=== PATIENT | female | born 1975 | race Caucasian/White ===

== ENCOUNTER 2017-09-15 20:00 | Emergency (ER) | payer MEDICAID ==
[~2017-09-15] VITALS: Ht 170.2 cm; Wt 61.2 kg
[2017-09-15 20:03] VITALS: BP_SYST 133
[2017-09-15 20:20] VITALS: BP_SYST 133
== END 2017-09-15 20:20 ==
LOC: MERGE 20:00 → SED 20:00
DX: Z02.89 Encounter for other administrative examinations (principal); R06.2 Wheezing; Z88.0 Allergy status to penicillin
CPT/HCPCS: 99283

== ENCOUNTER 2017-12-04 02:17 | Emergency (ER) | payer MEDICAID ==
[~2017-12-04] VITALS: Ht 157.5 cm; Wt 57.2 kg
[2017-12-04 02:20] VITALS: BP_SYST 151
--- NOTE | 2017-12-04 02:25 | NUR ---
Placed in room H1. Brought in by [facility] for medical clearance.
--- NOTE | 2017-12-04 02:29 | NUR ---
Pt AAOx4 BIB law enforcement for OK to book. Skin pink dry and warm, breathing even and unlabored. No other injuries/complaints per pt/noted. Will continue to monitor.
--- NOTE | 2017-12-04 02:30 | NUR ---
ER Dr. Ngo at bedside examining patient.
--- NOTE | 2017-12-04 02:37 | NUR ---
Patient given written and verbal discharge instructions and verbalizes understanding. Pt left in custody escorted by Officer Rosario with stable gait. ER MD Ngo discussed with patient the results and treatment provided. Patient in stable condition. No Rx given. Patient educated on pain management and to follow up with PMD. Pain Scale 0. Opportunity for questions provided and answered. Medication side effect fact sheet provided.
[2017-12-04 02:43] VITALS: BP_SYST 145
== END 2017-12-04 02:43 ==
LOC: SED 02:17
DX: Z02.89 Encounter for other administrative examinations (principal); G40.909 Epilepsy, unspecified, not intractable, without status epilepticus; F41.9 Anxiety disorder, unspecified; F17.200 Nicotine dependence, unspecified, uncomplicated; Z86.19 Personal history of other infectious and parasitic diseases; Z88.0 Allergy status to penicillin
CPT/HCPCS: 99283

== ENCOUNTER 2018-03-08 22:23 | Emergency (ER) | payer MEDICAID ==
[~2018-03-08] VITALS: Ht 170.2 cm; Wt 61.2 kg
[2018-03-08 23:08] VITALS: BP_SYST 141
[2018-03-09] MEDS ORDERED: IBUPROFEN 800 MG TABLET PO ONE (00:30)
[2018-03-09 00:52] VITALS: BP_SYST 141
== END 2018-03-09 00:52 | disposition home or self-care (01) ==
LOC: SED 22:23
DX: Z76.0 Encounter for issue of repeat prescription (principal)
CPT/HCPCS: 99283

== ENCOUNTER 2018-05-03 18:45 | Emergency (ER) | payer MEDICAID ==
[~2018-05-03] VITALS: Ht 170.2 cm; Wt 61.2 kg
--- NOTE | 2018-05-03 18:45 | NUR ---
Patient to ER bed h1 for evaluation. Side rails up.
[2018-05-03 18:52] VITALS: BP_SYST 105
--- NOTE | 2018-05-03 18:52 | NUR ---
ER Dr. Turpin at bedside examining patient.
--- NOTE | 2018-05-03 18:56 | NUR ---
Pt AAOx4 presents to ED escorted by DOTTIE Mayen for OK TO BOOK. Pt c/o headache and pain to R nare. Skin pink dry and warm, breathing even and unlabored, speaking in full sentences. No other injuries/complaints per pt/noted. Will continue to monitor.
--- NOTE | 2018-05-03 19:18 | NUR ---
Patient given written and verbal discharge instructions and verbalizes understanding. ER MD Turpin discussed with patient the results and treatment provided. Patient in stable condition. ID arm band removed. Rx of Acyclovir 800 mg given. Patient educated on pain management and to follow up with PMD. Pain Scale 0. Opportunity for questions provided and answered. Medication side effect fact sheet provided.
[2018-05-03 19:20] VITALS: BP_SYST 111
== END 2018-05-03 19:18 ==
LOC: SED 18:45
DX: B02.9 Zoster without complications (principal); Z88.0 Allergy status to penicillin; Z90.49 Acquired absence of other specified parts of digestive tract; Z86.19 Personal history of other infectious and parasitic diseases
CPT/HCPCS: 99283

== ENCOUNTER 2018-08-01 16:51 | Emergency (ER) | payer MEDICAID ==
[~2018-08-01] VITALS: Ht 170.2 cm; Wt 59.0 kg
[2018-08-01 16:51] VITALS: BP_SYST 134
[2018-08-01 17:35] VITALS: BP_SYST 132
== END 2018-08-01 17:30 ==
LOC: SED 16:51
DX: B95.62 Methicillin resistant Staphylococcus aureus infection as the cause of diseases classified elsewhere (principal); R03.0 Elevated blood-pressure reading, without diagnosis of hypertension; Z88.0 Allergy status to penicillin; Z86.19 Personal history of other infectious and parasitic diseases
CPT/HCPCS: 99283

== ENCOUNTER 2018-10-02 23:29 | Emergency (ER) | payer MEDICAID ==
[~2018-10-02] VITALS: Ht 170.2 cm; Wt 60.8 kg
[2018-10-02 23:39] VITALS: BP_SYST 148
--- NOTE | 2018-10-02 23:46 | NUR ---
Patient triaged and placed in waiting room. VSS and patient appears in no acute distress at this time. Accompanied by self, awaiting available bed, and MD notified of need for MSE.
--- NOTE | 2018-10-03 02:14 | NUR ---
Patient to ER bed 5 to gown for evaluation. Side rails up. Report given to Ronnie SMITH.
--- NOTE | 2018-10-03 02:20 | NUR ---
Patient complains of cough and congestion for about 2 weeks. Pt states she was seen at [facility] and was prescribed Keflex. Pt finished antibiotic regimen a day or two ago but still has a cough with green phlegm and nasal discharge. Pt denies fever, N/V, or abdominal pain. No other injuries/complaints per patient or notded.
--- NOTE | 2018-10-03 02:35 | NUR ---
ER Dr. Kirby at bedside examining patient.
[2018-10-03 02:58] VITALS: BP_SYST 135
--- NOTE | 2018-10-03 02:58 | NUR ---
Patient given written and verbal discharge instructions and verbalizes understanding. ER MD discussed with patient the results and treatment provided. Patient in stable condition. ID arm band removed. Rx of LEVOFLOXACIN,TESSALON given. Patient educated on pain management and to follow up with PMD. Pain Scale 0/10. Opportunity for questions provided and answered. Medication side effect fact sheet provided.
== END 2018-10-03 02:58 | disposition home or self-care (01) ==
LOC: SED 23:29
DX: J01.90 Acute sinusitis, unspecified (principal); F17.210 Nicotine dependence, cigarettes, uncomplicated; Z71.6 Tobacco abuse counseling; Z88.0 Allergy status to penicillin; Z86.19 Personal history of other infectious and parasitic diseases
CPT/HCPCS: 99283

== ENCOUNTER 2018-12-18 15:01 | Emergency (ER) | payer OTHER, MEDICAID ==
[~2018-12-18] VITALS: Ht 167.6 cm; Wt 54.4 kg
[2018-12-18 15:10] VITALS: BP_SYST 120
[2018-12-18] MEDS ORDERED: LamoTRIgine 100 MG TABLET PO ONE (15:30)
[2018-12-18] MEDS ORDERED: LamoTRIgine 100 MG TABLET PO SCH (15:30)
[2018-12-18 16:24] VITALS: BP_SYST 120
== END 2018-12-18 15:30 ==
LOC: SED 15:01
DX: L03.113 Cellulitis of right upper limb (principal); Z88.0 Allergy status to penicillin; Z86.19 Personal history of other infectious and parasitic diseases
CPT/HCPCS: 99283

== ENCOUNTER 2018-12-19 22:12 | Emergency (ER) | payer OTHER, MEDICAID ==
[~2018-12-19] VITALS: Ht 170.2 cm; Wt 62.6 kg
[2018-12-19 22:19] VITALS: BP_SYST 125
--- NOTE | 2018-12-19 22:27 | NUR ---
Pt placed in the waiting room in stable condition
== END 2018-12-20 | disposition left against medical advice (07) ==
LOC: SED 22:12
DX: Z76.0 Encounter for issue of repeat prescription (principal); Z53.21 Procedure and treatment not carried out due to patient leaving prior to being seen by health care provider

== ENCOUNTER 2018-12-20 04:14 | Emergency (ER) | payer OTHER, MEDICAID ==
[~2018-12-20] VITALS: Ht 170.2 cm; Wt 62.6 kg
[2018-12-20 04:17] VITALS: BP_SYST 128
[2018-12-20] MEDS ORDERED: LamoTRIgine 100 MG TABLET PO ONE (05:00)
[2018-12-20 05:17] VITALS: BP_SYST 128
[2018-12-20] MEDS ORDERED: LamoTRIgine 100 MG TABLET ONE (05:20)
== END 2018-12-20 05:16 | disposition home or self-care (01) ==
LOC: SED 04:14
DX: L03.115 Cellulitis of right lower limb (principal); Z76.0 Encounter for issue of repeat prescription
CPT/HCPCS: 81025; 99283

== ENCOUNTER 2019-02-24 21:21 | Emergency (ER) | payer OTHER, MEDICAID ==
[~2019-02-24] VITALS: Ht 170.2 cm; Wt 61.2 kg
--- NOTE | 2019-02-24 21:30 | NUR ---
Patient to ER ch1 for evaluation. Side rails up.
[2019-02-24 21:40] VITALS: BP_SYST 133
--- NOTE | 2019-02-24 21:46 | NUR ---
Pt AAOx4 BIB law enforcement in handcuffs for medical clearance prior to booking. Pt c/o pain to R hip shooting to R lower back. Pt also concerned of her epilepsy. No other injuries/complaints per pt/noted. Will continue to monitor.
[2019-02-24] MEDS ORDERED: CARB200T PO (21:47)
[2019-02-24] MEDS ORDERED: TEMA30CA5 PO (21:48)
[2019-02-24] MEDS ORDERED: LAM100 PO (21:48)
--- NOTE | 2019-02-24 22:28 | NUR ---
ER Dr. Whitaker at bedside examining patient.
--- NOTE | 2019-02-24 22:57 | NUR ---
Patient given written and verbal discharge instructions and verbalizes understanding. ER MD Whitaker discussed with patient the results and treatment provided. Patient in stable condition. ID arm band removed. No Rx given. Patient educated on pain management and to follow up with PMD. Pain Scale 0. Opportunity for questions provided and answered. Medication side effect fact sheet provided.
[2019-02-25 00:03] VITALS: BP_SYST 126
== END 2019-02-25 00:03 ==
LOC: SED 21:21
DX: Z02.89 Encounter for other administrative examinations (principal); G40.909 Epilepsy, unspecified, not intractable, without status epilepticus; Z86.14 Personal history of Methicillin resistant Staphylococcus aureus infection; Z86.19 Personal history of other infectious and parasitic diseases; Z79.899 Other long term (current) drug therapy; Z88.0 Allergy status to penicillin
CPT/HCPCS: 99283

== ENCOUNTER 2020-06-04 03:20 | Emergency (ER) | payer OTHER, MEDICAID ==
[~2020-06-04] VITALS: Ht 170.2 cm; Wt 58.1 kg
[~2020-06-04 03:20] MED LIST: CARB200T PO; LAM100 PO; TEMA30CA5 PO
[2020-06-04 03:43] VITALS: BP_SYST 113
[2020-06-04] MEDS ORDERED: LamoTRIgine 100 MG TABLET PO ONE (04:15)
[2020-06-04] MEDS ORDERED: LamoTRIgine 100 MG TABLET ONE (04:28)
[2020-06-04 04:41] VITALS: BP_SYST 113
== END 2020-06-04 04:41 ==
LOC: SED 03:20
DX: G40.909 Epilepsy, unspecified, not intractable, without status epilepticus (principal); F11.20 Opioid dependence, uncomplicated; F17.210 Nicotine dependence, cigarettes, uncomplicated; Z79.899 Other long term (current) drug therapy; Z88.0 Allergy status to penicillin
CPT/HCPCS: 99283

== ENCOUNTER 2020-09-12 09:34 | Emergency (ER) | payer OTHER, MEDICAID ==
[~2020-09-12] VITALS: Ht 170.2 cm; Wt 65.8 kg
--- NOTE | 2020-09-12 09:35 | NUR ---
Patient to ER bed hallway to gown for evaluation. Side rails up.
[2020-09-12 09:38] VITALS: BP_SYST 140
--- NOTE | 2020-09-12 09:40 | NUR ---
Pt bib [employer] for OK to book. No c/o at this time, v/s stable, no acute distress noted.
--- NOTE | 2020-09-12 09:42 | NUR ---
ER Dr. Park at bedside examining patient.
[2020-09-12 09:57] VITALS: BP_SYST 140
--- NOTE | 2020-09-12 09:57 | NUR ---
Patient given written and verbal discharge instructions and verbalizes understanding. ER MD discussed with patient the results and treatment provided. Patient in stable condition. ID arm band removed. No prescriptions given. Patient educated on pain management and to follow up with PMD. Pain Scale 0. Opportunity for questions provided and answered. Medication side effect fact sheet provided.
== END 2020-09-12 09:57 | disposition home or self-care (01) ==
LOC: SED 09:34
DX: Z02.89 Encounter for other administrative examinations (principal); J45.909 Unspecified asthma, uncomplicated; Z88.0 Allergy status to penicillin; Z79.899 Other long term (current) drug therapy
CPT/HCPCS: 99283